=== PATIENT | male | born 1995 | race Caucasian/White ===

== ENCOUNTER 2021-03-14 16:41 | Emergency (ER) | payer OTHER ==
[2021-03-14 17:00] VITALS: BP 122/67; PULSE 97; TEMP 98.3; BMI 31.1
[2021-03-14] MEDS ORDERED: VANCOMYCIN 1 GM in D5W (PRE-DOCKED) 1,000 MG/250 ML IVPB ONE (17:46)
[2021-03-14] MEDS ORDERED: PIPERACILLIN/TAZOB 3.375 GM 3.375 GM in DEXTROSE 5%-WATER - 50 ML IVPB ONE (17:46)
[2021-03-14] MEDS ORDERED: VANCOMYCIN 1 GRAM (PRE-DOCKED) 1,000 MG/250 ML BAG IVPB ONE (17:58)
[2021-03-14] MEDS ORDERED: PIPERACILLIN/TAZOB 3.375 GM 3.375 GM/50 ML BAG IVPB ONE (17:59)
[2021-03-14] MEDS ORDERED: ACETAMINOPHEN 1000 MG/100 ML VIAL (NON FORMULARY) IVPB ONE (18:05)
[2021-03-14 18:13] LABS: BASO % 0.5 % (0-2.0); EOS % 0.3 % (0-4.5); HEMATOCRIT 42.2 % (35.4-49); HEMOGLOBIN 14.2 GM/dL (11.7-16.9); LYMPH % 15.2 % (8-40); MCH 28.4 pg (25.7-33.7); MCHC 33.8 g/dl (32.0-35.9); MEAN CELL VOLUME 84.2 fl (80-96); MEAN PLT VOLUME 8.5 fl (7.5-11.1); MONO % 9.3 % (3.8-10.2); NEUT % 74.7 % (42.8-82.8); PLATELET COUNT 191 10^3/uL (134-434); RBC 5.01 M/mm3 (4.00-5.60); RDW 13.4 % (11.9-15.9); WHITE BLOOD COUNT 8.9 K/mm3 (4.0-10.0)
[2021-03-14 18:18] LABS: INR 1.13 (0.83-1.09); PROTHROMBIN TIME (PATIENT) 13.9 SEC (9.7-13.0)
[2021-03-14 18:20] LABS: ACTIVATED PTT 28.8 SECONDS (25.2-36.5)
[2021-03-14 18:31] LABS: CALCIUM 9.4 mg/dL (8.5-10.1)
[2021-03-14 18:32] LABS: ALBUMIN 4.3 g/dl (3.4-5.0); BLOOD UREA NITROGEN 14.3 mg/dL (7-18)
[2021-03-14 18:35] LABS: CREATININE 0.6 mg/dL (0.55-1.3)
[2021-03-14 18:36] LABS: BILIRUBIN,TOTAL 0.5 mg/dL (0.2-1); TOT PROT 7.7 g/dl (6.4-8.2)
[2021-03-14] MEDS ORDERED: ACETAMINOPHEN INJECTION 100 ML IVPB ONE (18:48)
== END 2021-03-14 19:10 | disposition home or self-care (01) ==
LOC: JER 16:41
PROC: 3E0333Z Introduction of Anti-inflammatory into Peripheral Vein, Percutaneous Approach (ICD-10-PCS; principal; 2021-03-14)
PROC: 3E03329 Introduction of Other Anti-infective into Peripheral Vein, Percutaneous Approach (ICD-10-PCS; 2021-03-14)
DX: L03.116 Cellulitis of left lower limb (principal); R22.42 Localized swelling, mass and lump, left lower limb; S81.002A Unspecified open wound, left knee, initial encounter
CPT/HCPCS: 36415; 73562-TC-LT-FY; 80053; 83605; 85025; 85610; 85730; 87040; 99285-25; J0131

== ENCOUNTER 2021-04-30 10:07 | Emergency (ER) | payer OTHER ==
[2021-04-30 10:12] VITALS: BP 125/63; PULSE 96; TEMP 98; BMI 29.0
[2021-04-30] MEDS ORDERED: DALBAVANCIN HCL 1,500 MG in DEXTROSE 5%-WATER - 500 ML IVPB ONE (11:15)
[2021-04-30] MEDS ORDERED: DALBAVANCIN HCL 500 MG VIAL (RESTRICTED TO ID ONLY) IVPB ONE (11:24)
[2021-04-30 12:16] LABS: BASO % 0.5 % (0-2.0); EOS % 0.6 % (0-4.5); HEMATOCRIT 41.5 % (35.4-49); HEMOGLOBIN 14.2 GM/dL (11.7-16.9); LYMPH % 18.3 % (8-40); MCHC 34.3 g/dl (32.0-35.9); MEAN CELL VOLUME 84.6 fl (80-96); MEAN PLT VOLUME 9.5 fl (7.5-11.1); MONO % 9.2 % (3.8-10.2); NEUT % 71.4 % (42.8-82.8); PLATELET COUNT 180 10^3/uL (134-434); RBC 4.91 M/mm3 (4.00-5.60); RDW 13.3 % (11.9-15.9); WHITE BLOOD COUNT 9.2 K/mm3 (4.0-10.0)
[2021-04-30 12:43] LABS: CALCIUM 8.9 mg/dL (8.5-10.1)
[2021-04-30 12:47] LABS: CREATININE 0.7 mg/dL (0.55-1.3)
[2021-04-30 12:48] LABS: BILIRUBIN,TOTAL 0.5 mg/dL (0.2-1); TOT PROT 7.3 g/dl (6.4-8.2)
== END 2021-04-30 13:25 | disposition home or self-care (01) ==
LOC: JERFT 10:07
PROC: 3E033GC Introduction of Other Therapeutic Substance into Peripheral Vein, Percutaneous Approach (ICD-10-PCS; principal; 2021-04-30)
DX: L03.115 Cellulitis of right lower limb (principal); B35.3 Tinea pedis
CPT/HCPCS: 36415; 73630-TC-RT-FY; 80053; 85025; 99284-25; J0875

== ENCOUNTER 2021-05-03 09:09 | Inpatient (IN) | payer OTHER ==
[2021-05-03 09:25] VITALS: BMI 29.0
[2021-05-03 11:38] LABS: PROTHROMBIN TIME (PATIENT) 12.1 SEC (9.7-13.0)
[2021-05-03 11:42] LABS: EOS % 1.8 % (0-4.5); HEMATOCRIT 39.3 % (35.4-49); HEMOGLOBIN 13.5 GM/dL (11.7-16.9); LYMPH % 31.5 % (8-40); MCH 28.9 pg (25.7-33.7); MCHC 34.4 g/dl (32.0-35.9); MEAN PLT VOLUME 8.9 fl (7.5-11.1); MONO % 8.1 % (3.8-10.2); NEUT % 57.6 % (42.8-82.8); PLATELET COUNT 198 10^3/uL (134-434); RBC 4.68 M/mm3 (4.00-5.60); RDW 13.5 % (11.9-15.9); WHITE BLOOD COUNT 4.6 K/mm3 (4.0-10.0)
[2021-05-03 12:00] LABS: ALBUMIN 3.8 g/dl (3.4-5.0); BLOOD UREA NITROGEN 13.4 mg/dL (7-18); CALCIUM 9.1 mg/dL (8.5-10.1)
[2021-05-03 12:03] LABS: CREATININE 0.6 mg/dL (0.55-1.3)
[2021-05-03 12:05] LABS: BILIRUBIN,TOTAL 0.4 mg/dL (0.2-1); TOT PROT 7.3 g/dl (6.4-8.2)
[2021-05-03] MEDS ORDERED: PIPERACILLIN/TAZOB 3.375 GM 3.375 GM in DEXTROSE 5%-WATER - 50 ML IVPB ONE (12:09)
[2021-05-03] MEDS ORDERED: PIPERACILLIN/TAZOB 3.375 GM 3.375 GM/50 ML BAG IVPB ONE (12:11)
[2021-05-03 12:22] LABS: ERYTHROCYTE SEDIMENTATION RATE 7 mm/hr (0-10)
[2021-05-03] MEDS ORDERED: PIPERACILLIN/TAZOB 2.25 GM 2.25 GM in DEXTROSE 5%-WATER - 50 ML IVPB SCH ×2 (12:30→17:00)
[2021-05-03] MEDS ORDERED: IBUPROFEN 400 MG TABLET (FP) PO PRN (12:36)
[2021-05-03 16:38] VITALS: PULSE 52; TEMP 98.3
[2021-05-03 16:45] VITALS: BP 117/71
[2021-05-03] MEDS ORDERED: PIPERACILLIN/TAZOB 3.375 GM 3.375 GM in DEXTROSE 5%-WATER - 50 ML IVPB SCH (18:00)
[2021-05-04] MEDS ORDERED: ENOXAPARIN NA (PORCINE) 40 MG/0.4 ML DISP.SYRIN SQ SCH (10:00)
== END 2021-05-03 17:34 | disposition left against medical advice (07) | DRG 603 ==
LOC: JER 09:09 → JERBED 12:21
PROVIDERS: ADMIT Internal Medicine; ATTEND Internal Medicine
DX: L02.611 Cutaneous abscess of right foot (principal)
CPT/HCPCS: 36415; 73630-TC-RT-FY; 80053; 85025; 85610; 85651; 86140; 86850; 86900; 86901; 87040; 99285-25; C9803; G0463-25; U0003; U0005

== ENCOUNTER 2021-05-04 11:20 | Inpatient (IN) | payer OTHER ==
[2021-05-04 11:34] VITALS: BMI 28.5
[2021-05-04 13:37] LABS: LYMPH % 34.2 % (8-40); MCHC 34.8 g/dl (32.0-35.9); MEAN CELL VOLUME 83.3 fl (80-96); MEAN PLT VOLUME 8.6 fl (7.5-11.1); MONO % 8.8 % (3.8-10.2); PLATELET COUNT 218 10^3/uL (134-434); RBC 5.16 M/mm3 (4.00-5.60); RDW 13.4 % (11.9-15.9); WHITE BLOOD COUNT 4.8 K/mm3 (4.0-10.0)
[2021-05-04 13:43] LABS: INR 1.1 (0.83-1.09); PROTHROMBIN TIME (PATIENT) 13.5 SEC (9.7-13.0)
[2021-05-04 14:08] LABS: ALBUMIN 4.2 g/dl (3.4-5.0); BLOOD UREA NITROGEN 13.5 mg/dL (7-18); CALCIUM 9.3 mg/dL (8.5-10.1)
[2021-05-04 14:12] LABS: CREATININE 0.8 mg/dL (0.55-1.3)
[2021-05-04 14:13] LABS: BILIRUBIN,TOTAL 0.6 mg/dL (0.2-1); TOT PROT 7.8 g/dl (6.4-8.2)
[2021-05-04] MEDS ORDERED: PIPERACILLIN/TAZOB 3.375 GM 3.375 GM in DEXTROSE 5%-WATER - 50 ML IVPB ONE ×2 (14:20→16:12)
[2021-05-04] MEDS ORDERED: VANCOMYCIN 1,000 MG in DEXTROSE 5%-WATER - 250 ML IVPB ONE (14:20)
[2021-05-04] MEDS ORDERED: VANCOMYCIN 1 GRAM (PRE-DOCKED) 1,000 MG/250 ML BAG IVPB ONE (14:32)
[2021-05-04] MEDS ORDERED: PIPERACILLIN/TAZOB 3.375 GM 3.375 GM/50 ML BAG IVPB ONE (14:32)
[2021-05-04 14:58] LABS: URINE APPEARANCE CLOUDY; URINE BILIRUBIN NEGATIVE (NEGATIVE); URINE COLOR YELLOW; URINE GLUCOSE (UA) NEGATIVE (NEGATIVE); URINE KETONE NEGATIVE (NEGATIVE); URINE LEUK ESTERASE NEGATIVE (NEGATIVE); URINE NITRITE NEGATIVE (NEGATIVE); URINE PROTEIN TRACE (NEGATIVE); URINE UROBILINOGEN 0.2 mg/dL (0.2-1.0)
[2021-05-04] MEDS ORDERED: IBUPROFEN 400 MG TABLET (FP) PO PRN (16:12)
[2021-05-04] MEDS ORDERED: CEFAZOLIN 1 GM/D5W 1 GM/50 ML BAG ONE (17:22)
[2021-05-04] MEDS: CEFAZOLIN 1 GM/D5W 1 GM/50 ML BAG IVPB SCH (17:27)
[2021-05-05] MEDS: CEFAZOLIN 1 GM/D5W 1 GM/50 ML BAG IVPB SCH ×3 (01:55→17:30)
[2021-05-05] MEDS ORDERED: ENOXAPARIN NA (PORCINE) 40 MG/0.4 ML DISP.SYRIN SQ SCH (11:45)
[2021-05-05 13:52] VITALS: BP 115/60; PULSE 67; TEMP 98.5
== END 2021-05-05 18:44 | disposition home or self-care (01) | DRG 603 ==
LOC: JER 11:20 → JERBED 16:44 → J6S 23:22
PROVIDERS: ADMIT Internal Medicine; ATTEND Internal Medicine
DX: L02.611 Cutaneous abscess of right foot (principal); D57.3 Sickle-cell trait
CPT/HCPCS: 36415; 80053; 81003; 82550; 82962; 84484; 85025; 85610; 86140; 87040; 87086; 93005; 93010; 99285-25; C9803; U0003; U0005